=== PATIENT | male | born 1960 | race African-American/Black ===

== ENCOUNTER 2017-09-24 15:44 | Emergency (ER) | payer OTHER ==
[~2017-09-24] VITALS: Ht 172.7 cm; Wt 100.0 kg
[2017-09-24] MEDS ORDERED: SODIUM CHLORIDE 0.9% 1,000 ML IV ONE (16:23)
[2017-09-24] MEDS ORDERED: METHYLPREDNISOLONE SOD SUCC 125 MG/2 ML VIAL IV ONE (16:30)
[2017-09-24 19:00] VITALS: BP 140/109
== END 2017-09-24 19:23 | disposition home or self-care (01) ==
LOC: ER 16:16
DX: T78.40XA Allergy, unspecified, initial encounter (principal); X58.XXXA Exposure to other specified factors, initial encounter
CPT/HCPCS: 96374; 99284; J2930; J7030